=== PATIENT | female | born 1985 | race African-American/Black ===

== ENCOUNTER 2017-03-10 21:44 | Emergency (ER) | payer OTHER ==
[~2017-03-10] VITALS: Ht 157.5 cm; Wt 77.1 kg
[2017-03-10 22:58] VITALS: BP 128/85
== END 2017-03-10 23:00 | disposition home or self-care (01) ==
LOC: ER 21:44
DX: F12.90 Cannabis use, unspecified, uncomplicated (principal); F41.1 Generalized anxiety disorder; Z98.890 Other specified postprocedural states

== ENCOUNTER 2020-10-17 16:42 | Emergency (ER) | payer OTHER ==
[~2020-10-17] VITALS: Ht 157.5 cm; Wt 79.4 kg
[2020-10-17 18:43] VITALS: BP 130/85
== END 2020-10-17 18:44 | disposition home or self-care (01) ==
LOC: ER 16:42
DX: U07.1 COVID-19 (principal); R06.00 Dyspnea, unspecified; R53.83 Other fatigue; Z98.51 Tubal ligation status